=== PATIENT | female | born 1940 | race Caucasian/White ===

== ENCOUNTER → 2018-09-25 07:24 | Outpatient (CLI) | payer MEDICARE, OTHER, SELFPAY ==
--- NOTE | 2018-09-25 10:36 | CA_ITS ---
APPROVED REPORT EXAM: Comprehensive 2D, Doppler, and color-flow Echocardiogram Leak Detector: Shilpi Smith RVT Ht: 5 ft 3 in Wt: 205lbs BSA: 1.95 BP: 160/70 mmHg Indications: CAD, LBBB, SC, PAF, GERD, AFIB Left Ventricle Left atrium is mildly enlarged, left ventricle is normal size, mild concentric left ventricular hypertrophy, visually estimated ejection fraction 45%, there is abnormal septal motion. Grade 1 diastolic dysfunction seen without tissue Doppler evidence of raise left atrial pressure. Right Ventricle Right atrium and right ventricular normal size and contractility. Aortic Valve Aortic valve is thickened and calcified, there is no aortic stenosis aortic insufficiency. Mitral Valve Mitral valve leaflets are minimally thickened, there is no mitral stenosis, there is mild mitral regurgitation. Tricuspid Valve Tricuspid valve is grossly normal, there is mild tricuspid regurgitation. Tricuspid regurgitation jet velocity is inadequate for titration of the right ventricular systolic pressure. Pulmonic Valve Pulmonic valve is poorly visualized. Great Vessels Aortic root is normal size. Pericardium No significant pericardial effusion noted M-Mode Dimensions RVDd 2.00 cm (0.9-2.6) LA Diam 4.40 cm (1.9-4.0) LVDd 6.30 cm (3.5-5.7) Ao Diam 3.20 cm (2.0-3.7) LVDs 4.40 cm (3.5-5.7) AV Cusp 1.80 cm (1.5-2.6) IVSd 1.00 cm (0.6-1.1) PWd 6.30 cm (0.6-1.1) EF (Teich) 56.40% FS 30.20% LV Diastology E/A Ratio 0.7 MED E' 11.70 (< 7 cm/sec) LAT E' 7.12 (<10 cm/sec) Mitral Valve MV E Max Salvador. 82.90 (40-130 cm/s) MV A Velocity 112.00 (40-130 cm/s) E/A Ratio 0.70 Pulmonary Valve PA Accel Time 130.00 (>120 msec) Tricuspid Valve TV Vmax 249.00 (30-100 cm/s) RVSP 25.00 mmHg Conclusion 1. Mildly enlarged left atrium, normal left ventricular size, mild concentric left ventricular hypertrophy, visually estimated ejection fraction 45%, there is abnormal septal motion. Grade 1 diastolic dysfunction seen without tissue Doppler evidence of raise left atrial pressure. 2. Mild mitral and tricuspid regurgitation 3. No significant pericardial effusion noted. Electronically signed by : Wai Barry, 09/29/2018 15:01:23
== END ==
PROVIDERS: PCP Family Medicine; Visit Provider Internal Medicine
DX: I25.10 Atherosclerotic heart disease of native coronary artery without angina pectoris (principal)
CPT/HCPCS: 93306

== ENCOUNTER → 2018-10-23 10:52 | Outpatient (CLI) | payer MEDICARE, OTHER, SELFPAY ==
--- NOTE | 2018-10-23 | CA_ITS ---
APPROVED REPORT Exam: Pharmacologic Technologist: Ghazala Ross Ht: 5 ft 3 in Wt: 205 lbs BSA: 1.95 m2 HR: 86 bpm BP: 151/67 mmHg Indications: CArdiomyopathy Medical History Medications: Lorazepam,,,,, Levothyroxine,,,,, Aspirin,,,,, Metoprolol,,,,, Ranitidine,,,,, HCTZ,,,,, DilTiazem,,,,, RoSUVASTATIN,,,,, Olmesartan,,,,, Stress Test Details Test: LEXISCAN HR Resting HR: 86 bpm Max Heart Rate (APMHR): 144 bpm Max HR Achieved: 115 bpm Target HR (85% APMHR): 122 bpm % of APMHR: 79 Recovery HR: 94 bpm BP Resting BP: 151/67 mmHg Max BP: 158/58 mmHg Recovery BP: 134.0/67.0 mmHg ECG Clinical Exercise duration: 04:00 min Highest Stage Achieved: Stress ECG Conclusion RESTING ECG: SINUS RHYTHM LEXISCAN PORTION COMPLETED. COMPLAINED OF SHORTNESS OF BREATH AT PEAK INFUSION. SYMPTOMS: NO CHEST PAIN. PATIENT HAD SHORTNESS OF BREATH AT PEAK INFUSION. RESOLVED IN RECOVERY. ARRHYTHMIAS/ECTOPY: OCCASIONAL PVC ST-T CHANGES: GREATER THAN 1.5mm ST DEPRESSION CONCLUSION: The EKG portion of the Lexiscan is nondiagnostic due to baseline abnormal EKG. Please refer to nuclear scan for full interpretation of the test. Electronically signed by : Wai Barry, 10/23/2018 19:36:18
--- NOTE | 2018-10-23 11:08 | NM_ITS ---
APPROVED REPORT Exam: Nuclear Stress Test Indication: CARDIOMYOPATHY, HYPERLIPIDEMIA, OLD PA, DYSPNEA, HYPERTENSIVE HEART DISEASE WITHOUT HEART FAILURE, ATHEROSCLEROTIC HEART DISEASE OF [place] CORONARY Patient Location: Outpatient Stress Tech: Ghazala Ross [place] Tech:ROYA El RT (R)(N)(M) Ht: 5 ft 3 in Wt: 205 lbs BSA: 1.95 m2 HR: 86 bpm BP: 151/67 mmHg BMI: 36.3 History: CARDIOMYOPATHY, HYPERLIPIDEMIA, OLD PA, DYSPNEA, HYPERTENSIVE HEART DISEASE WITHOUT HEART FAILURE, ATHEROSCLEROTIC HEART DISEASE OF [place] CORONARY Procedure: Patient received a 0.4 mg of intravenous Lexiscan, resting heart rate 86 bpm, resting blood pressure 151/67 mmHg, with Lexiscan maximum heart rate achived was 112 bpm which is Less than 85 % of the maximum predicted heart rate and blood pressure was 112/69 mmHg. With Lexiscan, patient denied any complaint of chest pain. Electrocardiogram Sinus rhythm, left bundle branch block, with Lexiscan there is less than 1.[address] segment depression noted from the baseline EKG. The EKG portion of the Lexiscan Myoview is nondiagnostic. Cardiac Stress and Resting SPECT Images: Cardiac Stress and Resting SPECT images were obtained using technetium 99m Myoview 29.6 mCi stress and 10.14 mCi at rest. Gated SPECT with analysis of segmental wall motion and calculation of the ejection fraction also done. Cardiac stress and resting SPECT images show mild defect in the anterior wall with normal contractility on the gated SPECT is likely secondary to soft tissue attenuation, no reversible ischemia seen, computer derived ejection fraction is over 65% with no regional wall motion abnormality, right ventricle is normal size and contractility. Conclusion: 1. The EKG portion of the Lexiscan Myoview is nondiagnostic. 2. No scintigraphic evidence of reversible ischemia seen, computer derived ejection fraction is over 65% with no regional wall motion abnormality, right ventricle is normal size and contractility. 3. Normal Lexiscan Myoview study. Electronically signed by : Wai Barry, 10/26/2018 16:35:57
[2018-10-23 11:16] LABS: Blood Urea Nitrogen 18 mg/dL (7-18); Creatinine,Serum 1.01 mg/dL (0.55-1.02); Estimated Glomerular Filt Rate 53 ml/min (>60); GFR (African American) 64 ML/MIN (>60)
== END ==
PROVIDERS: PCP Family Medicine; Visit Provider Nurse Practitioner Family
DX: E78.5 Hyperlipidemia, unspecified (principal); I11.9 Hypertensive heart disease without heart failure; I25.10 Atherosclerotic heart disease of native coronary artery without angina pectoris; I25.2 Old myocardial infarction; I44.7 Left bundle-branch block, unspecified; I48.91 Unspecified atrial fibrillation; R06.00 Dyspnea, unspecified
CPT/HCPCS: 36415; 78452; 82565; 84520; 93017; A9502; J2785

== ENCOUNTER → 2020-04-29 09:49 | Outpatient (CLI) | payer MEDICARE, OTHER, SELFPAY ==
--- NOTE | 2020-04-29 09:50 | CA_ITS ---
APPROVED REPORT EXAM: Comprehensive 2D, Doppler, and color-flow Echocardiogram Manager Software: Kaylan Robison, RCS, RVS Ht: 5 ft 3 in Wt: 210lbs BSA: 1.97 BP: 144/76 mmHg Indications: CM, LBBB, AFIB 2D Dimensions IVSd 0.87 cm F: 0.6-1.0 LVEF (Visual) 44.30 % PWd 0.91 cm F: 0.6 - 1.0 LA Volume 63.00 mL LVDd 6.04 cm F: 3.9 - 5.3 LA Volume Index 31.97 mL/m2 (M/F) 16-34 LVDs 4.69 cm F: 2.2 - 3.5 Left Atrium 4.33 cm F: 2.7 - 3.8 LVOT 1.69 cm (M/F) 1.5-2.5 M-Mode Dimensions LA Diam 4.33 cm (1.9-4.0) LVDd 6.37 cm (3.5-5.7) Ao Diam 3.26 cm (2.0-3.7) LVDs 4.65 cm (3.5-5.7) EF (Teich) 51.60% EPSs 0.80 cm FS 27.00% EDV (Teich) 206.30 mL TAPSE 2.40 (<1.7) ESV (Teich) 99.80 mL LV Diastology E Decel Time 370.00 (160-240 msec) E/A Ratio 0.70 MED E' 6.30 (< 7 cm/sec) MED A' 9.20 cm/s E'/MED E' Ratio 10.76 (>14) LAT E' 8.60 (<10 cm/sec) LAT A' 11.80 cm/s E/LAT E' Ratio 7.88 (>14) Aortic Valve LVOT Max 108.00 (70-110 cm/s) LVOT VTI 27.96 cm AoV Peak Salvador. 175.00 (50-130 cm/s) AO Peak GR. 12.30 mmHg AO Mean GR. 6.10 (<5 mmHg) AO VTI 40.18 (18-25 cm) KAYCE (VTI) 1.56 (2.5-4.5 cm2) Mitral Valve MV A Velocity 97.00 (40-130 cm/s) E/A Ratio 0.70 MV Decel. Time 370.00 (160-240 ms) Pulmonary Valve PV Peak Velocity 112.00 (50-150 cm/s) AK End VMAX 161.00 cm/s Tricuspid Valve TR P. Velocity 278.00 cm/s RAP Estimate 10.00 mmHg RVSP 40.90 mmHg Left Ventricle Left atrium is mildly enlarged, left ventricle is normal size, mild concentric left ventricular hypertrophy, visually estimated ejection fraction 50% with no regional wall motion abnormality, grade 1 diastolic dysfunction seen without tissue Doppler evidence of raise left atrial pressure. There is abnormal septal motion. Right Ventricle Right atrium and right ventricle are normal size and contractility. Aortic Valve Aortic valve is minimally thickened and fibrosed, there is no aortic stenosis or aortic insufficiency. Mitral Valve Mitral valve is grossly normal, there is trace mitral regurgitation. Tricuspid Valve Tricuspid grossly normal, there is trace tricuspid regurgitation. Pulmonic Valve Pulmonic valve is poorly visualized. Great Vessels Aortic root is normal size. Pericardium No significant pericardial effusion noted. Conclusion 1. Mildly enlarged left atrium, normal left ventricular size, mild concentric left ventricular hypertrophy, visually estimated ejection fraction 50% with no regional wall motion abnormality, there is abnormal septal motion. Grade 1 diastolic dysfunction seen without tissue Doppler evidence of raise left atrial pressure. 2. Mild mitral and tricuspid regurgitation. 3. No significant pericardial effusion noted. Electronically signed by : Wai Barry, 04/29/2020 22:22:04
== END ==
PROVIDERS: PCP Family Medicine; Visit Provider Nurse Practitioner Family
DX: E78.2 Mixed hyperlipidemia (principal); I11.9 Hypertensive heart disease without heart failure; I25.10 Atherosclerotic heart disease of native coronary artery without angina pectoris; I25.2 Old myocardial infarction; I42.9 Cardiomyopathy, unspecified; I44.7 Left bundle-branch block, unspecified; I48.0 Paroxysmal atrial fibrillation
CPT/HCPCS: 93306